=== PATIENT | male | born 1960 | race Caucasian/White ===

== ENCOUNTER 2019-01-28 06:34 | Emergency (ER) | payer BC ==
[~2019-01-28] VITALS: Ht 185.4 cm; Wt 110.0 kg
[2019-01-28 06:39] VITALS: BP 153/98
== END 2019-01-28 07:11 | disposition home or self-care (01) ==
LOC: ED 07:00
DX: N40.1 Benign prostatic hyperplasia with lower urinary tract symptoms (principal); R33.8 Other retention of urine
CPT/HCPCS: 99281